=== PATIENT | female | born 1990 | race Caucasian/White ===

== ENCOUNTER 2022-09-17 09:43 | Emergency (ER) | payer MEDICAID ==
[~2022-09-17] VITALS: Ht 157.5 cm; Wt 63.6 kg
[2022-09-17 11:57] VITALS: BP 117/78
[2022-09-17] MEDS ORDERED: AMOX1TAB16 MT (11:59)
[2022-09-17] MEDS ORDERED: ONDA4TAB50 MT (11:59)
[2022-09-17] MEDS ORDERED: ONDANSETRON 4MG ODT PO ONE (12:00)
[2022-09-17] MEDS ORDERED: IBUP-2029 MT (12:00)
== END 2022-09-17 12:15 | disposition home or self-care (01) ==
LOC: ER 09:43
DX: J32.9 Chronic sinusitis, unspecified (principal); Z98.890 Other specified postprocedural states; Z90.49 Acquired absence of other specified parts of digestive tract
CPT/HCPCS: 99283; Q0162